=== PATIENT | female | born 1990 | race Caucasian/White ===

== ENCOUNTER → 2020-02-28 10:57 | Outpatient (BNVA) | payer OTHER, SELFPAY | PROVIDERS: PCP Internal Medicine; Referring Provider Internal Medicine; Visit Provider Obstetrics & Gynecology | DX: Z76.89 Persons encountering health services in other specified circumstances (principal) ==

== ENCOUNTER 2023-07-09 09:30 | Outpatient (REF) | payer OTHER, SELFPAY ==
[2023-07-10 02:54] LABS: CT PCR NOT DETECTED (Not Detect.); NG PCR NOT DETECTED (Not Detect.)
[2023-07-10 09:55] LABS: BV Int Neg Control Negative (Negative); BV Int Pos Control Positive (Positive)
[2023-07-13 23:32] LABS: HPV mRNA E6/E7 rflx Not Detected (Not Detected)
== END 2023-07-09 09:31 | disposition home or self-care (01) ==
LOC: HO.LAB 09:30
PROVIDERS: Visit Provider Advanced Practice Midwife
DX: Z01.419 Encounter for gynecological examination (general) (routine) without abnormal findings (principal); Z11.51 Encounter for screening for human papillomavirus (HPV); Z20.2 Contact with and (suspected) exposure to infections with a predominantly sexual mode of transmission
CPT/HCPCS: 0353U; 87480; 87510; 87624; 87660; 88142

== ENCOUNTER 2023-07-09 09:30 | Outpatient (AMB) | payer OTHER, SELFPAY ==
--- NOTE | 2023-07-09 09:58 | A.OFFVIS_ITS ---
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 She used to come to the [facility] office. The birthing center closed during her pregnancies so she was sent to [facility] to deliver she had a primary C- section because her induction failed after 2 days she only got to 4 cm. She said that she was sent over there in her 39th week because she was told that her baby would not grow anymore and she thinks that she ended up in a because her body was not ready yet in the baby was not ready to be born yet he was fine and weighed 6 lb 1 oz. She is sexually active with her of 8 years she is open to though also has questions about permanent sterilization in the future she has not 100% sure yet and wanted to talk about it. Her 4-year-old son asks for a sibling. She is not a fan of control methods having use the patch before and the Nexplanon and she did not like the Nexplanon at all and had it removed in couple of months or so. [facility] Medical History (Updated 07/09/23 @ 11:42 by Verona Saenz CNM) Cystic fibrosis carrier Delivery with history of Surgical History History of delivery Family History Mother HTN (hypertension) Social History Alcohol intake: never Patient : No Female Reproductive History Menstrual Age of Menarche: 12 Duration of menses: 3-5 days Date of last menstrual period: 07/02/23 control method: none Total pregnancies: 1 Full term: 1 Date of last pap smear: 05/25/19 (per patient,negative) History of abnormal pap smear: No Physical Exam Vital Signs: Last Vital Signs BP 100/62 07/09/23 10:06 BMI result Body Mass Index 25.2 Const General: healthy appearing, comfortable, no acute distress, well developed and alert Nutritional Appearance: average body habitus Orientation/consciousness: patient oriented x3 Limitations: no limitations HEENT Head: Yes normocephalic Neck Neck: Yes normal visual inspection Thyroid: Thyroid normal Chest Chest palpation & inspection: normal inspection of the chest Breast/axilla inspection: normal inspection of the breasts and normal inspection of the axillae Breast/axilla palpation: normal palpation of the breasts and normal palpation of the axillae Resp Effort & Inspection: normal respiratory effort GI Inspection: Yes normal to inspection, No Abdominal wall edema and No distended Palpation (GI): Soft to palpation and nontender Other: Normal obstetrics gyn exam when labia were being spread to introduce speculum there was a shallow ulcerated lesion at the base of the vagina. The patient stated that this happens periodically and she thought it was because they did not have enough lubrication when she had sex last night. She has noticed it periodically in the past. She has no concerns about STDs. 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 and there is a potential for that as well Vagina otherwise pink and moist cervix pink and moist slightly friable with Pap but not very some of the discharge consistent with very mild yeast.(liquidy white) General: Yes bladder normal to palpation External Female Exam: normal external appearance and normal appearance of the urethra Speculum Exam - Vagina: normal appearance of the vagina, normal palpation and normal vaginal discharge Speculum Exam - Cervix: normal appearance of the cervix, normal palpation and nontender Bimanual exam- vagina & uterus: normal bimanual exam, normal palpation, uterine size normal, bladder normal to palpation, consistency normal, normal palpation, uterine mobility normal, uterine shape normal, No Cervical tenderness present, non-tender and no cervical motion tenderness Bimanual Exam- Adnexa, other: normal adnexae, no masses, normal and No adnexal tenderness Female genitals images: 2 1. Shallow ulcerated lesion similar to a cut about 1.5 cm long edges very slightly reddened slight yellowish whitish exudate in center,9 unable to be cultured secondary to lack of culture media swabs for viral culture Neuro General: patient oriented x3 Assessment & Plan Assessment & Plan (1) Well woman exam with routine gynecological exam: Code(s): Z01.419 - Encounter for gynecological examination (general) (routine) without abnormal findings (2) Delivery with history of : Code(s): O34.219 - Maternal care for unspecified type scar from previous delivery (3) Cystic fibrosis carrier: Code(s): Z14.1 - Cystic fibrosis carrier (4) Cervical cancer screening: Code(s): Z12.4 - Encounter for screening for malignant neoplasm of cervix (5) Vaginal lesion: Comment: Vaginal lesion consistent either with an abrasion from friction from sex last night or possible herpetic lesion. Teaching done unable to do culture as no culture media available today offered for patient to be seen in other office or return tomorrow but that will not be possible for her patient will observe precautions and act as if it might be HSV and if it recurs she will call to be seen that day to do culture. Code(s): N89.8 - Other specified noninflammatory disorders of vagina Plan -----Discussed in this visit the following: healthy balanced diet, regular and consistent exercise, getting recommended health screens, doing the best she can for her particular health concerns, kegel exercises, pap smear screening and followup recommendations, mammography screening and SBE, normal changes in cycles in her life stage--- . Patient eats very well other than the cultures done during the visit she has no concerns about STDs. Extensive discussion about the possibility of herpetic lesion versus an actual abrasion from friction and dryness during sex. Discussed with the patient that the safer thing to do might be to act as if the lesion could be herpes discussed the pattern of it occurring periodically and that herpes outbreaks would occur like that when there is friction or irritation. Since she and her partner both have cold sores and have been together for years it is quite possible that there has been some transference of the virus there. Patient will be careful as if it is herpes and if it recurs again she will call to be seen that day so that we can try to do a culture reviewed that I might be able to do a culture tomorrow however she was not able to come tomorrow. (culture media not available in this office today ). Discussed that it could also very well just be a split in the mucosa from friction and dryness during sex. She has experienced it in the past. Also reviewed her both openness to and also questioning tubal ligation and that tubal ligation should only be embarked upon when 1 is 100% certain and that there are other things to do and that the 2 IUDs could be of use. Also reviewed her experience of induction of labor and and what she would want to do going forward in the future she said if she got she would be fine with it. Discussed that discussion about delivery plans would probably want to happen early in the and it would be best for her to establish care where she would delivering thinks that she would go to [facility].. Orders: Orders 2 CT NG by PCR Today Z01.419 - Encounter for gynecological examination (general) (routine) without abnormal findings Pap Smear Today Z01.419 - Encounter for gynecological examination (general) (routine) without abnormal findings Bacterial Vaginosis Panel Today Z20.2 - Contact with and (suspected) exposure to infections with a predominantly sexual mode of transmission Coding Level of Care Code New Pt Prev Care [id number]([id number] Diagnoses Well woman exam with routine gynecological exam Z01.419 Delivery with history of O34.219 Cystic fibrosis carrier Z14.1 Cervical cancer screening Z12.4 Vaginal lesion N89.8
[2023-07-09 10:06] VITALS: BP 100/62; BMI 25.2
== END 2023-07-09 11:48 | disposition home or self-care (01) ==
LOC: HO.HWSM 09:30
PROVIDERS: Visit Provider Advanced Practice Midwife
DX: Z01.419 Encounter for gynecological examination (general) (routine) without abnormal findings (principal); O34.219 Maternal care for unspecified type scar from previous cesarean delivery; Z14.1 Cystic fibrosis carrier; Z12.4 Encounter for screening for malignant neoplasm of cervix; N89.8 Other specified noninflammatory disorders of vagina
CPT/HCPCS: 99385